=== PATIENT | female | born 1990 | race Caucasian/White ===

== ENCOUNTER 2021-07-20 17:13 | Inpatient (IN) | payer OTHER ==
[2021-07-20] MEDS ORDERED: Nalbuphine 10 MG/1 ML Vial IVPUSH PRN (18:14)
[2021-07-20] MEDS ORDERED: Ondansetron 4 MG/2 ML SDV IVPUSH PRN (18:14)
[2021-07-20] MEDS ORDERED: Oxytocin/Lactated Ringers 10 UNIT/1,000 ML BAG IV SCH ×2 (18:15)
[2021-07-20] MEDS ORDERED: Sodium Chloride 0.9% 10 ML Syringe FLUSH SCH (21:00)
[2021-07-20] MEDS: Calcium Carbonate 500 MG Tab.Chew PO PRN (22:30)
[2021-07-21] MEDS: Lactated Ringers 1,000 ML IV SCH ×2 (02:52→09:04)
[2021-07-21] MEDS: Calcium Carbonate 500 MG Tab.Chew PO PRN (02:56)
[2021-07-21] MEDS ORDERED: Bupivacaine/fentaNYL/NS 100 ML Bag EPIDUR PRN (08:18)
[2021-07-21] MEDS ORDERED: fentaNYL 100 MCG/2 ML SDV EPIDUR PRN (08:18)
[2021-07-21] MEDS ORDERED: diphenhydrAMINE 50 MG/ML SDV IVPUSH PRN (08:18)
[2021-07-21] MEDS ORDERED: ePHEDrine 50 MG/ML SDV IVPUSH PRN (08:18)
[2021-07-21] MEDS ORDERED: Lidocaine 1.5% with EPINEPHrine 1:200,000 5 ML Amp ONE (14:00)
[2021-07-21] MEDS ORDERED: Misoprostol 200 MCG Tab ONE (15:36)
[2021-07-21] MEDS ORDERED: Methylergonovine 0.2 MG/1 ML Amp ONE (15:41)
[2021-07-21] MEDS ORDERED: Carboprost Tromethamine 250 MCG/1 ML Amp ONE (15:46)
[2021-07-21] MEDS ORDERED: Methylergonovine 0.2 MG/1 ML Amp IM STA (16:08)
[2021-07-21] MEDS ORDERED: Misoprostol 200 MCG Tab PO STA (16:08)
[2021-07-21] MEDS ORDERED: Carboprost Tromethamine 250 MCG/1 ML Amp IM ONE (16:08)
[2021-07-21] MEDS ORDERED: ceFAZolin 2 GM in Premix Bag 1 BAG IV STA (16:10)
[2021-07-21] MEDS: ceFAZolin 1 GM in Sodium Chloride 0.9% 50 ML IV SCH ×2 (16:42→16:46)
[2021-07-21] MEDS ORDERED: Acetaminophen/HYDROcodone 325-5 MG Tab PO PRN (20:35)
[2021-07-21] MEDS ORDERED: Acetaminophen 325 MG Tab PO PRN (20:35)
[2021-07-21] MEDS ORDERED: Benzocaine/Menthol 20%-0.5% Spray 78 GM Cannister TOP PRN (20:35)
[2021-07-21] MEDS ORDERED: Witch Hazel Medicated Pads 40/Jar TOP PRN (20:35)
[2021-07-21] MEDS: Ibuprofen 600 MG Tab PO PRN (20:53)
[2021-07-21] MEDS: Docusate Sodium 100 MG Cap PO PRN (20:55)
[2021-07-22] MEDS: Ibuprofen 600 MG Tab PO PRN ×4 (03:51→23:54)
[2021-07-22] MEDS ORDERED: Measles, Mumps & Rubella Vaccine 0.5 ML SDV SUBCUT ONE (07:00)
[2021-07-22] MEDS: Docusate Sodium 100 MG Cap PO PRN (17:26)
[2021-07-23 04:06] VITALS: PULSE 71
[2021-07-23] MEDS: Ibuprofen 600 MG Tab PO PRN (05:28)
[2021-07-23 12:51] VITALS: BP 133/73
== END 2021-07-23 11:55 | disposition home or self-care (01) | DRG 807 ==
LOC: JD.OBCHECK 17:13 → JD.OB 17:35 → JD.OBCHECK 20:48 → JD.OB 20:49 → OBSVTOIN 07-21 15:29 → JD.MS 07-21 16:48 → JD.OB 07-21 18:59
PROVIDERS: ADMIT Obstetrics & Gynecology; ATTEND Obstetrics & Gynecology
PROC: 10E0XZZ Delivery of Products of Conception, External Approach (ICD-10-PCS; principal; 2021-07-21)
PROC: 10907ZC Drainage of Amniotic Fluid, Therapeutic from Products of Conception, Via Natural or Artificial Opening (ICD-10-PCS; 2021-07-21)
PROC: 3E033VJ Introduction of Other Hormone into Peripheral Vein, Percutaneous Approach (ICD-10-PCS; 2021-07-21)
PROC: 3E0R3BZ Introduction of Anesthetic Agent into Spinal Canal, Percutaneous Approach (ICD-10-PCS; 2021-07-21)
PROC: 00HU33Z Insertion of Infusion Device into Spinal Canal, Percutaneous Approach (ICD-10-PCS; 2021-07-21)
PROC: 3E0234Z Introduction of Serum, Toxoid and Vaccine into Muscle, Percutaneous Approach (ICD-10-PCS; 2021-07-23)
DX: O36.8190 Decreased fetal movements, unspecified trimester, not applicable or unspecified (principal); Z37.0 Single live birth; O70.0 First degree perineal laceration during delivery; Z20.822 Contact with and (suspected) exposure to COVID-19; O76 Abnormality in fetal heart rate and rhythm complicating labor and delivery; Z23 Encounter for immunization; O72.1 Other immediate postpartum hemorrhage; Z3A.39 39 weeks gestation of pregnancy
CPT/HCPCS: 01967; 36415; 51701; 51702; 59025; 59409; 85027; 86592; 86850; 86900; 86901; 90471; 90707; A9270-GY; J0690; J2210; J2405; J2590; J3010; J7120; U0002